=== PATIENT | male | born 1935 | race Caucasian/White ===

== ENCOUNTER 2020-09-07 19:12 | Emergency (ER) | payer MEDICARE, BC, SELFPAY ==
[2020-09-07 19:15] VITALS: BMI 39.5
--- NOTE | 2020-09-07 19:16 | ED_ITS ---
HPI - Abdominal Pain General: Chief Complaint: Nausea/Vomiting/Diarrhea Stated Complaint: vomiting Time Seen by Provider: 09/07/20 19:13 Source: patient and EMS Mode of arrival: EMS Limitations: no limitations History of Present Illness: HPI narrative: 84-year-old male who is here from assisted. Patient had one episode of vomiting earlier today there. Nursing was concerned it may have had blood in it they are not sure. Patient here has no complaints. He states he no longer feels nauseous just of the one episode of vomiting. He denies any pain. He denies any blood in stool. Patient's vitals per EMS were all normal. He denies any worsening improving factors. MD elicited complaint: abdominal pain Associated Symptoms: Reports nausea and vomiting; Denies chills, dysuria and fever(s) Review of Systems Const: Denies: fever(s), chills, body aches or change in appetite Eyes: Denies: blurry vision or eye discomfort ENMT: Denies: throat pain or dental pain Card: Denies: chest pain Resp: Denies: dyspnea GI: Reports: nausea and vomiting : Denies: dysuria Musc: Denies: neck pain or back pain Skin/Breast: Denies: rash Neuro: Denies: headache(s) Psych: Denies: depression Josh/Lymph: Denies: easy bruising All/Imm: Denies: urticaria Physical Exam 2 Const: COMMON NORMALS: no acute distress, patient oriented x3 and healthy appearing HENMT: COMMON NORMALS: normocephalic and atraumatic HEAD & SCALP: normocephalic and atraumatic Eye: COMMON NORMALS: Equal, round and reactive pupils present and EOMs intact bilaterally PUPIL: Yes Equal, round and reactive pupils present Neck/C-Spine: COMMON NORMALS: full ROM and supple Chest: COMMONS NORMALS: normal inspection of the chest and normal palpation of entire chest wall Resp: COMMON NORMALS: normal respiratory effort, No retractions, No use of accessory muscles and clear to auscultation bilaterally AUSCULTATION: clear to auscultation bilaterally Cardio: COMMON NORMALS: regular rate, regular rhythm and No murmurs present (Cardio) RATE: regular rate RHYTHM: regular rhythm GI: COMMON NORMALS: Normal to inspection, nondistended, normoactive bowel sounds present, Soft to palpation, non-tender and no masses PALPATION: Yes Soft to palpation Extremity: COMMON NORMALS: normal to inspection and full ROM Neuro: COMMON NORMALS: patient oriented x3, moves all extremities and no focal motor deficits Psych: COMMON NORMALS: mental status grossly normal, Normal thought process present and cooperative THOUGHT PROCESS: Normal thought process present Skin: COMMON NORMALS: no rashes or lesions noted and no wounds GENERAL SKIN EXAM: no rashes or lesions noted Course Vital Signs: Vital signs: Vital Signs Temperature 97.7 F 09/07/20 19:22 Pulse Rate 82 09/07/20 19:22 Respiratory Rate 26 H 09/07/20 19:22 Blood Pressure 201/85 09/07/20 19:22 Pulse Oximetry 92 09/07/20 19:22 MDM - Abdominal Pain MDM Narrative: Medical decision making narrative: Patient presents here with vomiting with possible blood in his vomit the assisted. Patient has no signs of upper GI bleed here and his hemoglobin here is normal and his blood pressures been normal. He had no vomiting episodes here has been here for over 3 hours. His abdominal exam is benign. He is stable for discharge back to assisted. Lab Data: Labs: Lab Results 09/07/20 09/07/20 Range/Units 19:35 19:35 WBC 8.3 (4.0-10.0) 10^3/ uL RBC 4.16 (4.1-5.3) 10^6/u L Hgb 10.7 L (11.7-16.6) g/dL Hct 33.8 L (42.0-52.0) % MCV 81.3 (80-94) fL MCH 25.7 L (28.0-34.0) pg MCHC 31.7 (30.0-36.0) g/dL RDW 17.3 H (12.1-15.1) % Plt Count 196 (130-400) 10^3/c mm MPV 11.2 H (7.4-10.4) fL Neut % (Auto) 76.9 % Lymph % (Auto) 12.7 % Pike % (Auto) 7.9 % Eos % (Auto) 1.6 % Baso % (Auto) 0.5 % Neut # (Auto) 6.37 (1.8-7.7) 10^3/u L Lymph # (Auto) 1.1 (0.8-4.8) 10^3/u L Pike # (Auto) 0.7 (0.2-0.9) 10^3/u L Eos # (Auto) 0.1 (0.0-0.8) 10^3/u L Baso # (Auto) 0.0 (0.0-0.1) 10^3/u L Nucleated RBC % (a uto) 0 % Nucleated RBCs # 0.0 /100WBC Sodium 139 (136-145) mmol/L Potassium 3.8 (3.5-5.1) mmol/L Chloride 103 (98-107) mmol/L Carbon Dioxide 25 (22-29) mmol/L Anion Gap 14.8 (5-19) BUN 32 H (8-23) mg/dL Creatinine 1.7 H (0.7-1.2) mg/dL GFR Calculation Not Reportable Glucose 97 (65-115) mg/dL Calculated Osmolal ity 295 (285-295) mOsm/k g Calcium 9.0 (8.5-10.5) mg/dL Total Bilirubin 1.0 (0.15-1.2) mg/dL AST 16 (0-40) U/L ALT 16 (0-41) U/L Alkaline Phosphata se 117 (40-130) IU/L Total Protein 6.8 (6.6-8.7) g/dL Albumin 3.8 (3.5-5.2) g/dL Globulin 3.0 (1.3-4.6) g/dL Lipase 18 (13-60) U/L Discharge Plan Discharge Patient Disposition: Home Clinical Impression: Vomiting Qualifiers: Vomiting type: unspecified Vomiting Intractability: non-intractable Nausea presence: with nausea Qualified Code(s): R11.2 - Nausea with vomiting, unspecified Condition: Stable Prescriptions: New ondansetron 4 mg tablet,disintegrating 4 mg PO Q6H PRN (Reason: nausea and vomiting) Qty: 14 RF: 0 No Action Cozaar 50 mg Tablet 50 mg PO DAILY@0800 RF: 0 Lasix 40 mg Tablet 40 mg PO BID@0800,1200 RF: 0 Coreg 25 mg Tablet 25 mg PO BID@0800,2000 RF: 0 potassium chloride 10 mEq Capsule, Extended Release 10 meq PO DAILY@0800 RF: 0 acetaminophen 325 mg Tablet 650 mg PO Q6H PRN (Reason: Pain) RF: 0 divalproex 250 mg Tablet,Delayed Release (Dr/Ec) 250 mg PO BID@799,1999 RF: 0 hydralazine 25 mg Tablet 25 mg PO TID@0800,1399,1999 RF: 0 Plavix 75 mg Tablet 75 mg PO DAILY@0800 RF: 0 Ativan 0.5 mg Tablet 0.5 mg PO BID@799,1999 RF: 0 Milk of Magnesia 400 mg/5 mL Suspension 1,200 mg PO Q24H PRN (Reason: Constipation) RF: 0 Lasix 80 mg Tablet See Rx Instructions .ROUTE .COMPLEX RF: 0 trazodone 100 mg Tablet 100 mg PO DAILY@1999 RF: 0 Dulcolax (bisacodyl) 10 mg Suppository 10 mg [place] DAILY PRN (Reason: Constipation) RF: 0 Colace 100 mg Capsule 100 mg PO BID@799,1999 RF: 0 Miralax 17 gram/dose Powder 17 g PO Q2D@0800 RF: 0 memantine 10 mg Tablet 10 mg PO BID@799,1999 RF: 0 Discharge Orders: Discharge ED (Routine); Ordered 09/07/20 Ordered By: Fritz Regalado Referrals: Everton Alcocer [Primary Care Provider] - Discharge Diet: Advance as tolerated Discharge Activity: Resume usual activity Patient Instructions: Acute Nausea and Vomiting (ED) Coding Level of Care Code ED Official Court Interpreter for [employer] Fwd Exam Comprehensive
[2020-09-07 19:22] VITALS: BP 201/85; PULSE 82; RESP 26; TEMP 36.5; O2SAT 92
[2020-09-07] MEDS: ondansetron 2 mg/ML SDV 2 mL 4 MG IVP (19:30)
[2020-09-07] MEDS: labetalol 5 mg/mL SDV 20mL 10 MG IVP (19:35)
[2020-09-07 19:44] LABS: Basophils % 0.5 %; Eosinophils # 0.1 10^3/uL (0.0-0.8); Eosinophils % 1.6 %; Hematocrit 33.8 % (42.0-52.0); Hemoglobin 10.7 g/dL (11.7-16.6); Lymphocytes # 1.1 10^3/uL (0.8-4.8); Lymphocytes % 12.7 %; Mean Corpuscular HGB Conc 31.7 g/dL (30.0-36.0); Mean Corpuscular Hemoglobin 25.7 pg (28.0-34.0); Mean Corpuscular Volume 81.3 fL (80-94); Mean Platelet Volume 11.2 fL (7.4-10.4); Monocytes # 0.7 10^3/uL (0.2-0.9); Monocytes % 7.9 %; Neutrophils # 6.37 10^3/uL (1.8-7.7); Neutrophils % 76.9 %; Nucleated Red Blood Cells % 0 %; Platelet Count 196 10^3/cmm (130-400); Red Blood Count 4.16 10^6/uL (4.1-5.3); Red Cell Distribution Width 17.3 % (12.1-15.1); White Blood Count 8.3 10^3/uL (4.0-10.0)
[2020-09-07 20:10] LABS: Alanine Aminotransferase 16 U/L (0-41); Albumin Level 3.8 g/dL (3.5-5.2); Alkaline Phosphatase 117 IU/L (40-130); Anion Gap 14.8 (5-19); Aspartate Amino Transferase 16 U/L (0-40); Blood Urea Nitrogen 32 mg/dL (8-23); Carbon Dioxide 25 mmol/L (22-29); Chloride 103 mmol/L (98-107); Glucose 97 mg/dL (65-115); Lipase 18 U/L (13-60); Osmolality Calculated 295 mOsm/kg (285-295); Potassium 3.8 mmol/L (3.5-5.1); Sodium 139 mmol/L (136-145); Total Protein 6.8 g/dL (6.6-8.7)
[2020-09-07 21:22] VITALS: BP 148/109; PULSE 75; O2SAT 95
[2020-09-07 23:00] VITALS: BP 164/110
== END 2020-09-07 23:05 | disposition home or self-care (01) ==
PROVIDERS: Emergency Provider Emergency Medicine; PCP Family Medicine
DX: R11.2 Nausea with vomiting, unspecified (principal); Z79.02 Long term (current) use of antithrombotics/antiplatelets
CPT/HCPCS: 80053; 83690; 85025; 96374; 96375; 99284; J2405; J3490

== ENCOUNTER 2020-09-12 18:19 | Inpatient (IN) | payer MEDICARE, BC, SELFPAY ==
[2020-09-12] VITALS (8 sets, daily range): BP systolic 138–166; BP diastolic 68–90; PULSE 55–71; RESP 18–25; TEMP 35.1–37.1; O2SAT 95–99; BMI 28.8
--- NOTE | 2020-09-12 18:22 | XRR_ITS ---
PROCEDURE INFORMATION: Exam: XR Chest Exam date and time: 09/12/2020 6:35 PM Age: 84 years old Clinical indication: Cough and shortness of breath; Prior surgery; Additional info: Dyspnea/cough TECHNIQUE: Imaging protocol: XR of the chest. Views: 1 view. COMPARISON: CR Chest 2 views* [id number] 03/24/2019 3:30 PM FINDINGS: Lungs: Increased density in the retrocardiac left lower lobe may represent an area of atelectasis or pneumonic consolidation. Correlation with the clinical findings is suggested. Visualized portions of the right lung are clear. Pleural spaces: There is moderate left pleural effusion. Heart/Mediastinum: Unremarkable. No cardiomegaly. Bones/joints: Sternotomy wires and mediastinal surgical clips are present, consistent with previous coronary arterial bypass grafting. XR/XR chest 1V portable [id number] IMPRESSION: 1. Left lower lobe atelectasis or consolidation. 2. Left pleural effusion.
--- NOTE | 2020-09-12 18:34 | W.ED.AMS ---
HPI - Altered Mental Status General: Chief Complaint: Altered Mental Status Stated Complaint: AMS, HYPOGLYCEMIA Time Seen by Provider: 09/12/20 18:21 Source: patient and EMS Mode of arrival: EMS Limitations: no limitations History of Present Illness: HPI narrative: 84-year-old male who has a history of dementia is here from care home after being altered today. Per EMS care home found his blood sugar to be in the 40s and was not able to rouse him. They did give him glucagon he is now awake and alert at his baseline. Patient here is able answer all my questions and knows his name. He is disoriented to place and time but that is his baseline. He states he feels well currently. Patient is on insulin there. He has had no fever. No head injuries. Associated symptoms: Deny depression Review of Systems Const: Denies: fever(s), chills, body aches or change in appetite Eyes: Denies: blurry vision or eye discomfort ENMT: Denies: throat pain or dental pain Card: Denies: chest pain Resp: Denies: dyspnea GI: Denies: abdominal pain, nausea, vomiting or diarrhea : Denies: dysuria Musc: Denies: neck pain or back pain Skin/Breast: Denies: rash Neuro: Reports: confusion; Denies: headache(s) Psych: Denies: depression Josh/Lymph: Denies: easy bruising All/Imm: Denies: urticaria PFSH ED PFSH: Medical History (Updated 09/12/20 @ 21:03 by Fritz Regalado MD) Cellulitis CHF (congestive heart failure) Diabetes Dyslipidemia Hypertension Surgical History (Updated 09/12/20 @ 21:01 by León Soliz MD) Hx of CABG Family History (Updated 09/12/20 @ 21:02 by León Soliz MD) Other Family history non-contributory Social History Smoking and tobacco status: former smoker Alcohol intake: never Substance/Drug Use: never Housing: [facility] Physical Exam Const: COMMON NORMALS: no acute distress, healthy appearing and alert ORIENTATION/CONSCIOUSNESS: Yes oriented to person; not oriented to place and not oriented to time HENMT: COMMON NORMALS: normocephalic and atraumatic HEAD & SCALP: normocephalic and atraumatic Eye: COMMON NORMALS: Equal, round and reactive pupils present and EOMs intact bilaterally PUPIL: Yes Equal, round and reactive pupils present Neck/C-Spine: COMMON NORMALS: full ROM and supple Chest: COMMONS NORMALS: normal inspection of the chest and normal palpation of entire chest wall Resp: COMMON NORMALS: normal respiratory effort, No retractions, No use of accessory muscles and clear to auscultation bilaterally AUSCULTATION: clear to auscultation bilaterally Cardio: COMMON NORMALS: regular rate, regular rhythm and No murmurs present (Cardio) RATE: regular rate RHYTHM: regular rhythm GI: COMMON NORMALS: Normal to inspection, nondistended, normoactive bowel sounds present, Soft to palpation, non-tender and no masses PALPATION: Yes Soft to palpation Extremity: COMMON NORMALS: normal to inspection and full ROM Neuro: COMMON NORMALS: moves all extremities and no focal motor deficits SENSORIUM/ORIENTATION: Yes alert, Yes oriented to person, No oriented to place and No oriented to time Psych: COMMON NORMALS: mental status grossly normal, Normal thought process present and cooperative THOUGHT PROCESS: Normal thought process present Skin: COMMON NORMALS: no rashes or lesions noted and no wounds GENERAL SKIN EXAM: no rashes or lesions noted Course Vital Signs: Vital signs: Vital Signs Temperature 96 F L 09/12/20 20:00 Pulse Rate 55 L 09/12/20 20:00 Respiratory Rate 24 H 09/12/20 20:00 Blood Pressure 149/68 09/12/20 20:00 Pulse Oximetry 95 09/12/20 20:00 MDM - Altered Mental Status MDM Narrative: Medical decision making narrative: Patient presents with confusion likely from hypoglycemia. Patient is now awake and alert with his sugar corrected. Does have some dyspnea and x-ray shows a possible pneumonia. He also has some hypo thermia. Patient given IV antibiotics here along with some Lasix as his BNP is elevated as well. Spoke to hospitalist will admit for observation. Lab Data: Labs: Lab Results 09/12/20 09/12/20 09/12/20 Range/Units 18:31 18:31 18:31 WBC 6.4 (4.0-10.0) 10^3/ uL RBC 3.65 L (4.1-5.3) 10^6/u L Hgb 9.3 L (11.7-16.6) g/dL Hct 29.6 L (42.0-52.0) % MCV 81.1 (80-94) fL MCH 25.5 L (28.0-34.0) pg MCHC 31.4 (30.0-36.0) g/dL RDW 17.1 H (12.1-15.1) % Plt Count 175 (130-400) 10^3/c mm MPV 11.0 H (7.4-10.4) fL Neut % (Auto) 73.1 % Lymph % (Auto) 14.8 % Jenkins % (Auto) 6.6 % Eos % (Auto) 4.2 % Baso % (Auto) 1.1 % Neut # (Auto) 4.65 (1.8-7.7) 10^3/u L Lymph # (Auto) 0.9 (0.8-4.8) 10^3/u L Jenkins # (Auto) 0.4 (0.2-0.9) 10^3/u L Eos # (Auto) 0.3 (0.0-0.8) 10^3/u L Baso # (Auto) 0.1 (0.0-0.1) 10^3/u L Nucleated RBC % (a uto) 0 % Nucleated RBCs # 0.0 /100WBC Sodium 139 (136-145) mmol/L Potassium 4.2 (3.5-5.1) mmol/L Chloride 106 (98-107) mmol/L Carbon Dioxide 27 (22-29) mmol/L Anion Gap 10.2 (5-19) BUN 31 H (8-23) mg/dL Creatinine 1.4 H (0.7-1.2) mg/dL GFR Calculation Not Reportable Glucose 68 (65-115) mg/dL POC Glucose (70-110) mg/dL Calculated Osmolal ity 293 (285-295) mOsm/k g Calcium 8.6 (8.5-10.5) mg/dL Magnesium 2.3 (1.7-2.3) mg/dL Total Bilirubin 0.7 (0.15-1.2) mg/dL AST 17 (0-40) U/L ALT 13 (0-41) U/L Alkaline Phosphata se 88 (40-130) IU/L NT-Pro-B Natriuret Pep 5167 H (0-450) pg/mL Total Protein 6.0 L (6.6-8.7) g/dL Albumin 3.3 L (3.5-5.2) g/dL Globulin 2.7 (1.3-4.6) g/dL 09/12/20 Range/Units 19:21 WBC (4.0-10.0) 10^3/ uL RBC (4.1-5.3) 10^6/u L Hgb (11.7-16.6) g/dL Hct (42.0-52.0) % MCV (80-94) fL MCH (28.0-34.0) pg MCHC (30.0-36.0) g/dL RDW (12.1-15.1) % Plt Count (130-400) 10^3/c mm MPV (7.4-10.4) fL Neut % (Auto) % Lymph % (Auto) % Jenkins % (Auto) % Eos % (Auto) % Baso % (Auto) % Neut # (Auto) (1.8-7.7) 10^3/u L Lymph # (Auto) (0.8-4.8) 10^3/u L Jenkins # (Auto) (0.2-0.9) 10^3/u L Eos # (Auto) (0.0-0.8) 10^3/u L Baso # (Auto) (0.0-0.1) 10^3/u L Nucleated RBC % (a uto) % Nucleated RBCs # /100WBC Sodium (136-145) mmol/L Potassium (3.5-5.1) mmol/L Chloride (98-107) mmol/L Carbon Dioxide (22-29) mmol/L Anion Gap (5-19) BUN (8-23) mg/dL Creatinine (0.7-1.2) mg/dL GFR Calculation Glucose (65-115) mg/dL POC Glucose 95 (70-110) mg/dL Calculated Osmolal ity (285-295) mOsm/k g Calcium (8.5-10.5) mg/dL Magnesium (1.7-2.3) mg/dL Total Bilirubin (0.15-1.2) mg/dL AST (0-40) U/L ALT (0-41) U/L Alkaline Phosphata se (40-130) IU/L NT-Pro-B Natriuret Pep (0-450) pg/mL Total Protein (6.6-8.7) g/dL Albumin (3.5-5.2) g/dL Globulin (1.3-4.6) g/dL Imaging Data^: CT Head: Radiologist's impression: [employer] [address] [place] [address] Scan Report Signed Patient: Roge Hopkins Unit #: [id number] : 1935 Age/Sex: 84 / M ADM Date: 09/12/20 Loc: ER Room/Bed: Attending Dr: Ordering Provider/Ordering MD: Fritz Regalado MD Date of Service: 09/12/20 Procedure(s): CT head wo con* [id number] Accession Number(s): [id number] Report Number: [id number] PROCEDURE INFORMATION: Exam: CT Head Without Contrast Exam date and time: 09/12/2020 7:01 PM Age: 84 years old Clinical indication: Altered mental status/memory loss; Additional info: AMS TECHNIQUE: Imaging protocol: Computed tomography of the head without contrast. Radiation optimization: All CT scans at this facility use at least one of these dose optimization techniques: automated exposure control; mA and/or kV adjustment per patient size (includes targeted exams where dose is matched to clinical indication); or iterative reconstruction. COMPARISON: No relevant prior studies available. RADIATION DOSE METRICS: Total DLP (mGy-cm): 1525.55 FINDINGS: Brain: There is advanced cortical atrophy. Low-density changes in the white matter are consistent with nonspecific small vessel chronic ischemic change. There is no intracranial mass, hemorrhage or edema. There are areas focal encephalomalacia in the left frontal lobe and left posterior parietal lobe and left occipital lobe in keeping with chronic cortical infarcts. Cerebral ventricles: No ventriculomegaly. Bones/joints: Unremarkable. No acute fracture. Paranasal sinuses: Visualized sinuses are unremarkable. No fluid levels. Mastoid air cells: Visualized mastoid air cells are well aerated. Soft tissues: Unremarkable. 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 No acute intracranial finding. CXR: Radiologist's impression: [facility] [address] [facility] [place] [address] XRay Report Signed Patient: Roge Hopkins Unit #: [id number] : 1935 Age/Sex: 84 / M ADM Date: 09/12/20 Loc: ER Room/Bed: Attending Dr: Ordering Provider/Ordering MD: Kendell Rivera DO Date of Service: 09/12/20 Procedure(s): XR chest 1V portable [id number] Accession Number(s): [id number] Report Number: [id number] PROCEDURE INFORMATION: Exam: XR Chest Exam date and time: 09/12/2020 6:35 PM Age: 84 years old Clinical indication: Cough and shortness of breath; Prior surgery; Additional info: Dyspnea/cough TECHNIQUE: Imaging protocol: XR of the chest. Views: 1 view. COMPARISON: CR Chest 2 views* [id number] 03/24/2019 3:30 PM FINDINGS: Lungs: Increased density in the retrocardiac left lower lobe may represent an area of atelectasis or pneumonic consolidation. Correlation with the clinical findings is suggested. Visualized portions of the right lung are clear. Pleural spaces: There is moderate left pleural effusion. Heart/Mediastinum: Unremarkable. No cardiomegaly. Bones/joints: Sternotomy wires and mediastinal surgical clips are present, consistent with previous coronary arterial bypass grafting. XR/XR chest 1V portable [id number] IMPRESSION: 1. Left lower lobe atelectasis or consolidation. 2. Left pleural effusion. Discharge Plan Discharge Patient Disposition: Admitted As Inpatient Clinical Impression: Hypoglycemia Pneumonia Qualifiers: Pneumonia type: due to unspecified organism Laterality: unspecified laterality Lung location: unspecified part of lung Qualified Code(s): J18.9 - Pneumonia, unspecified organism CHF (congestive heart failure) Qualifiers: Heart failure type: unspecified Heart failure chronicity: acute on chronic Qualified Code(s): I50.9 - Heart failure, unspecified Condition: Stable Coding Level of Care Code ED Phlebotomy Instructor for [facility] Fwd Exam Comprehensive
[2020-09-12 18:38] LABS: Basophils # 0.1 10^3/uL (0.0-0.1); Basophils % 1.1 %; Eosinophils # 0.3 10^3/uL (0.0-0.8); Eosinophils % 4.2 %; Hematocrit 29.6 % (42.0-52.0); Hemoglobin 9.3 g/dL (11.7-16.6); Lymphocytes # 0.9 10^3/uL (0.8-4.8); Lymphocytes % 14.8 %; Mean Corpuscular HGB Conc 31.4 g/dL (30.0-36.0); Mean Corpuscular Hemoglobin 25.5 pg (28.0-34.0); Mean Corpuscular Volume 81.1 fL (80-94); Monocytes # 0.4 10^3/uL (0.2-0.9); Monocytes % 6.6 %; Neutrophils # 4.65 10^3/uL (1.8-7.7); Neutrophils % 73.1 %; Nucleated Red Blood Cells % 0 %; Platelet Count 175 10^3/cmm (130-400); Red Blood Count 3.65 10^6/uL (4.1-5.3); Red Cell Distribution Width 17.1 % (12.1-15.1); White Blood Count 6.4 10^3/uL (4.0-10.0)
--- NOTE | 2020-09-12 18:54 | PC.NURSE ---
pt thinks it is may and that he is in [place] at the hospital. he also was unsure of the year and why he is here
[2020-09-12 19:04] LABS: Alanine Aminotransferase 13 U/L (0-41); Albumin Level 3.3 g/dL (3.5-5.2); Alkaline Phosphatase 88 IU/L (40-130); Blood Urea Nitrogen 31 mg/dL (8-23); Calcium 8.6 mg/dL (8.5-10.5); Carbon Dioxide 27 mmol/L (22-29); Chloride 106 mmol/L (98-107); Globulin 2.7 g/dL (1.3-4.6); Glucose 68 mg/dL (65-115); Magnesium 2.3 mg/dL (1.7-2.3); Osmolality Calculated 293 mOsm/kg (285-295); Sodium 139 mmol/L (136-145); Total Bilirubin 0.7 mg/dL (0.15-1.2)
[2020-09-12 19:05] LABS: Anion Gap 10.2 (5-19); Aspartate Amino Transferase 17 U/L (0-40); Potassium 4.2 mmol/L (3.5-5.1)
[2020-09-12 19:16] LABS: NT Pro B Type Natriuretic Pept 5167 pg/mL (0-450)
[2020-09-12 19:37] LABS: Glucose Point of Care 95 mg/dL (70-110)
[2020-09-12] MEDS: FUROsemide 10 mg/mL SDV 4mL 40 MG IVP (20:09)
[2020-09-12] MEDS: cefTRIAXone 1,000 MG in sodium chloride 0.9% (plus) 50 ML 100 MG IV (20:09)
[2020-09-12] MEDS: azithromycin 500 MG in sodium chloride 0.9% 250 ML 250 MG IV (20:10)
--- NOTE | 2020-09-12 21:00 | P.HP_ITS ---
Providers/Chief Complaint Primary Care Provider: Everton Alcocer Chief Complaint: AMS, HYPOGLYCEMIA History of Present Illness Roge Hopkins is a 84 year old male resident of a skilled nursing, presented today after an event of hypoglycemia induced altered mental status. At the skilled nursing he was found to be very drowsy and confused blood sugar was checked which was in 40s, he was given glucagon. His mentation improved, he was sent to the ER for further evaluation. Patient is stating that for last few weeks he has been experiencing orthopnea, PND, shortness of breath, he has not noticed any fever, productive cough, he is denying chest pain, shortness of breath, dysuria, change in bowel movements. Diagnosis in the ER revealed CHF exacerbation he was given ceftriaxone and azithromycin for concern of left-sided pneumonia however prolactin is normal, no leukocytosis, hemoglobin 9.3, creatinine at baseline EKG showing T wave inversion anterolateral leads with sinus bradycardia will require serial troponin and EKG, however patient is not complaining of active chest pain On comparison with previous EKGs, these T wave inversions are not new, T wave inversion noticed on previous EKG in lead II aVF anterolateral leads Will request D-dimer along serial troponin and EKG Review of Systems Const: Reports: body aches and fatigue; Denies: fever(s) or chills Eyes: Denies: change in vision ENMT: Denies: throat pain Card: Reports: edema, dyspnea on exertion and orthopnea; Denies: chest pain Resp: Reports: dyspnea GI: Denies: abdominal pain : Denies: flank pain Musc: Denies: neck pain Skin/Breast: Reports: new lesions, lesions and striae Neuro: Denies: headache(s) Psych: Reports: memory loss; Denies: anxiety Endo: Denies: polyuria Josh/Lymph: Denies: easy bruising All/Imm: Denies: urticaria Medications/Allergies Home Medications Medication Instructions Recorded Confirmed Last Taken Type acetaminophen 650 mg PO Q6H PRN 09/07/20 09/12/20 Unknown History bisacodyl [Dulcolax (bisacodyl)] 10 mg [place] DAILY PRN 09/07/20 09/12/20 Unknown History carvedilol [Coreg] 25 mg PO BID@0800,199909/07/20 09/12/20 09/12/20 History clopidogrel [Plavix] 75 mg PO DAILY@0800 09/07/20 09/12/20 09/12/20 History divalproex 250 mg PO BID@0800,199909/07/20 09/12/20 09/12/20 History docusate sodium [Colace] 100 mg PO BID@0800,199909/07/20 09/12/20 09/12/20 History furosemide [Lasix] 40 mg PO BID@0800,1200 09/07/20 09/12/20 09/12/20 History furosemide [Lasix] See Rx Instructions .ROUTE .COMPLEX 09/07/20 09/12/20 09/04/20 History hydralazine 25 mg PO TID@0800,1399,199909/07/20 09/12/20 09/12/20 History lorazepam [Ativan] 0.5 mg PO BID@0800,199909/07/20 09/12/20 09/12/20 History losartan [Cozaar] 50 mg PO DAILY@0800 09/07/20 09/12/20 09/12/20 History magnesium hydroxide [Milk of 1,200 mg PO Q24H PRN 09/07/20 09/12/20 09/12/20 History Magnesia] memantine 10 mg PO BID@08,199909/07/20 09/12/20 09/12/20 History ondansetron 4 mg PO Q6H PRN #14 tab 09/07/20 09/12/20 09/08/20 Rx polyethylene glycol 3350 [Miralax] 17 g PO Q2D@79909/07/20 09/12/20 09/12/20 History potassium chloride 10 meq PO DAILY@79909/07/20 09/12/20 09/12/20 History trazodone 100 mg PO DAILY@199909/07/20 09/12/20 09/11/20 History insulin glargine [Lantus U-100 36 unit SUBCUT BEDTIME@199909/12/20 09/12/20 09/11/20 History Insulin] omeprazole 20 mg PO DAILY@0800 09/12/20 09/12/20 09/12/20 History Allergies Allergy/AdvReac Type Severity Reaction Status Date / Time NKDA Allergy Unknown Uncoded 07/10/19 11:32 PFSH Acute PFSH: Medical History (Updated 09/13/20 @ 00:50 by León Soliz MD) Cellulitis CHF (congestive heart failure) Dementia Diabetes Dyslipidemia Hypertension Surgical History Hx of CABG Family History Other Family history non-contributory Social History Smoking and tobacco status: former smoker Alcohol intake: never Substance/Drug Use: never Housing: [facility] Vitals/I&O/Wt Last Vital Signs Temp 96 F L 09/12/20 20:00 Pulse 55 L 09/12/20 20:00 Resp 24 H 09/12/20 20:00 BP 149/68 09/12/20 20:00 Pulse Ox 95 09/12/20 20:00 Weight last 48 hrs Weight 86.183 kg Physical Exam Narrative: EXAM NARRATIVE: Elderly male, appears stated age, Currently laying comfortably in his bed No active chest pain or shortness of breath Loud systolic murmur all over precordium, active signs of fluid overload lower extremity 1+ pitting edema with multiple lacerations Is awake alert oriented x3 no neurological deficits Bilateral breath sounds with crackles at the bases Abdomen soft nontender Multiple lacerations of lower extremities He was saturating well on 2 L nasal cannula Hypothermia noted 95.5 Data : 09/12/20 18:31 09/12/20 18:31 A&P Assessment and plan (1) CHF exacerbation: Status: Acute (2) Hypoglycemia: Status: Acute (3) Abnormal EKG: Status: Acute Additional A&P Information Acute CHF exacerbation Currently requiring 2 L nasal cannula oxygen supplementation to keep saturation above 90% No active chest pain We requested a troponin and EKG, EKG showing inversion anterolateral leads however on comparison to previous EKG these changes are not new patient is chest pain-free at the time of my evaluation would not start ACS protocol for now We will keep him on Bumex 1 mg p.o. daily monitor urine output and correlate with creatinine, chest imaging consistent with vascular congestion, will request D-dimer to rule out PE Home O2 evaluation Echo in the morning Altered mental status secondary to hypoglycemia Check hemoglobin A1c level I would reduce Lantus dose to 15U instead of 36 units He received 1 dose of glucagon Chronic kidney disease: No acute exacerbation creatinine seems to be around baseline Baseline dementia: Continue memantine Full code Cardiac diet DVT prophylaxis Heparin Attestations Medical Necessity Statement*: Anticipating discharge in less than 48 hours currently need overnight monitoring because of acute hypoxic respiratory failure due to CHF exacerbation Time Spent in Patient Care: (>than 50% of time spent in counselling and/or direct pt care on unit) . 30mins Coding Level of Care Code Acute Supervisor Microbiology Technologists for [facility] Fwd Diagnoses CHF exacerbation I50.9 Hypoglycemia E16.2 Abnormal EKG R94.31
--- NOTE | 2020-09-12 21:13 | ECG_ITS ---
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 Measurements Intervals [place] Rate: 56 P: -21 CT: 175 QRS: 118 QRSD: 145 T: 230 QT: 541 QTc: 526 Interpretive Statements SINUS BRADYCARDIA MARKED RIGHT AXIS DEVIATION [QRS AXIS > 100] INTRAVENTRICULAR CONDUCTION DELAY [130+ ms QRS DURATION] PROBABLE LATERAL MYOCARDIAL INFARCTION, OF INDETERMINATE AGE Compared to ECG 03/24/2019 15:06:10 Right-axis deviation now present Intraventricular conduction delay now present Myocardial infarct finding now present Sinus rhythm no longer present Right bundle-branch block no longer present T-wave abnormality no longer present Possible ischemia no longer present Electronically Signed On 09-13-2020 17:30:37 CDT by Eri Guerrero M.D. [id number]
[2020-09-12 21:26] LABS: Procalcitonin 0.07 ng/mL (0-0.5)
[2020-09-12 21:44] LABS: Add Urine Microscopic? NO; Charge for UA Resulting for Rev
[2020-09-12 21:51] LABS: Bilirubin Urine Neg (Negative); Blood Urine Neg (Negative); Glucose Urine UA Norm (Normal); Ketones Urine Negative (Negative); Leukocyte Esterase Urine Negative (Negative); Nitrate Urine Negative (Negative); Protein Urine Neg (Negative); Urine Appearance Clear (CLEAR); Urine Color Yellow (Yellow); Urobilinogen Urine Norm (Negative); pH Urine 7 (5-7)
[2020-09-12] MEDS: heparin 5,000 unit/mL INJ 1 mL 5000 UNIT SUBCUT (23:39)
[2020-09-13 00:03] LABS: Glucose Point of Care 59 mg/dL (70-110)
--- NOTE | 2020-09-13 00:41 | USCV_ITS ---
Ceceliamary Roge Age: 84 Gender: M : 1935 Exam Date: 09/13/2020 06:05 Ordering Phys: León Soliz MD Technologist: Cecile Santos Exam Location: [facility] [place] Indication: DYSPNEA BP: 156 / 93 HR: 64 Rhythm: Sinus Technical Quality: Technically difficult study MEASUREMENTS (Male / Female) Normal Values 2D ECHO LV Diastolic Diameter PLAX 3.9 cm 4.2 - 5.9 / 3.9 - 5.3 cm LV Systolic Diameter PLAX 2.8 cm IVS Diastolic Thickness 1.6 cm 0.6 - 1.0 / 0.6 - 0.9 cm IVS Systolic Thickness 2.1 cm LVPW Diastolic Thickness 1.6 cm 0.6 - 1.0 / 0.6 - 0.9 cm LVPW Systolic Thickness 1.7 cm RV Chamber Size 4.0 cm LVOT Diameter 1.7 cm LV Ejection Fraction 2D Teich 56.8 % LV Ejection Fraction MOD 2C 23.7 % LV Ejection Fraction 2C AL 29.5 % LA Diameter 3.1 cm LA Width 4.9 cm LA Height 5.6 cm RA Width 3.7 cm RA Height 5.6 cm Aorta at Sinotubular Diameter 2.0 cm M-MODE LV Diastolic Diameter MM 5.8 cm 4.2 - 5.9 / 3.9 - 5.3 cm LV Systolic Diameter MM 4.5 cm LV Ejection Fraction MM Teich 43.1 % IVS Diastolic Thickness MM 1.6 cm 0.6 - 1.0 / 0.6 - 0.9 cm IVS Systolic Thickness MM 1.6 cm LVPW Diastolic Thickness MM 1.3 cm 0.6 - 1.0 / 0.6 - 0.9 cm LVPW Systolic Thickness MM 1.3 cm Aortic Annulus Diameter 2.4 cm LA Ao Ratio MM 1.3 MV E Point Septal Separation 1.3 cm DOPPLER AV Peak Velocity 237.0 cm/s LVOT Peak Velocity 91.7 cm/s AV Area Cont Eq vti 0.9 cm squared AV Area Cont Eq pk 0.9 cm squared MV Area PHT 5.0 cm squared Mitral E to A Ratio 2.1 MV E' Velocity 48.0 cm/s Mitral E to MV E' Ratio 16.7 Mitral E to LV E' Lateral Ratio 12.8 Mitral E to LV E' Septal Ratio 23.9 TR Peak Velocity 265.3 cm/s TR Peak Gradient 28.1 mmHg Right Atrial Pressure 8.0 mmHg Pulmonary Artery Systolic Pressu 36.1 mmHg PV Peak Velocity 89.0 cm/s RV Acceleration Time 0.1 s RV Ejection Time 0.3 s RV AcT/ET 0.4 FINDINGS Left Ventricle Normal left ventricular size. LV systolic function is moderately reduced with EF of 35-40%. Moderate global hypokinesis. Grade 2 diastolic dysfunction Right Ventricle The right ventricle is grossly normal Right Atrium The right atrium is normal in size. Left Atrium The left atrium is enlarged Mitral Valve Structurally normal mitral valve without significant stenosis or prolapse. There is no mitral regurgitation. Aortic Valve Aortic valve is thickened. Moderate aortic stenosis with MARIA ESTHER of 1.0cm2 and mean gradient across the valve of 12.6mmHg. There is no aortic regurgitation. Tricuspid Valve Structurally normal tricuspid valve without significant stenosis or regurgitation. Insufficient TR jet to calculate RVSP Pulmonic Valve Structurally normal pulmonic valve without significant stenosis. There is trace pulmonic regurgitation. Pericardium Normal pericardium without effusion. Aorta Normal ascending aorta dimension. CONCLUSIONS LV systolic function is moderately reduced with EF of 35-40% Grade 2 diastolic dysfunction Left atrial enlargement Moderate aortic stenosis with MARIA ESTHER of 1cm2 and mean gradient across the valve of 12.6mmHg Trace pulmonic regurgitation No comparison studies are available Martinez Jacinto MD (Electronically Signed) Final Date: 14 September 2020 19:41 S
[2020-09-13 01:03] LABS: Glucose Point of Care 120 mg/dL (70-110)
[2020-09-13 02:54] LABS: Glucose Point of Care 129 mg/dL (70-110)
[2020-09-13 03:19] LABS: Estmated Average Glucose 197; Hemoglobin A1C 8.5 % (4.0-6.0)
[2020-09-13 04:48] VITALS: BP 156/83; PULSE 64; RESP 18; TEMP 36.7; O2SAT 100
[2020-09-13 05:22] LABS: Anion Gap 13.2 (5-19); Blood Urea Nitrogen 31 mg/dL (8-23); Calcium 8.5 mg/dL (8.5-10.5); Carbon Dioxide 27 mmol/L (22-29); Chloride 102 mmol/L (98-107); Glucose 113 mg/dL (65-115); Osmolality Calculated 293 mOsm/kg (285-295); Potassium 4.2 mmol/L (3.5-5.1); Sodium 138 mmol/L (136-145)
[2020-09-13 05:33] LABS: Glucose Point of Care 117 mg/dL (70-110)
[2020-09-13 05:59] LABS: Glucose Point of Care 104 mg/dL (70-110)
[2020-09-13] MEDS: heparin 5,000 unit/mL INJ 1 mL 5000 UNIT SUBCUT ×3 (06:17→21:08)
[2020-09-13 06:35] LABS: Glucose Point of Care 99 mg/dL (70-110)
[2020-09-13 07:43] VITALS: BP 160/76; PULSE 71; PULSE 76; RESP 20; TEMP 36.8; O2SAT 98
[2020-09-13 08:58] LABS: Glucose Point of Care 79 mg/dL (70-110)
[2020-09-13 09:16] VITALS: BP 160/76
[2020-09-13] MEDS: clopidogrel 75 mg Tablet PO (09:16)
[2020-09-13] MEDS: bumetanide 1 mg Tablet PO (09:16)
[2020-09-13] MEDS: carvedilol 25 mg Tablet PO ×2 (09:16→21:07)
[2020-09-13] MEDS: losartan 50 mg Tablet PO (09:16)
[2020-09-13] MEDS: memantine 5 mg tablet 10 MG PO ×2 (09:16→21:07)
[2020-09-13] MEDS: divalproex DR 250 mg Tablet PO ×2 (09:16→21:07)
[2020-09-13] MEDS: potassium chloride ER 10 mEq Tablet PO (09:17)
[2020-09-13] MEDS: hyDRALAzine 25 mg Tablet PO ×3 (09:17→21:07)
[2020-09-13] MEDS: pantoprazole DR 40 mg Tablet PO (09:17)
--- NOTE | 2020-09-13 09:18 | ECG_ITS ---
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 Measurements Intervals [place] Rate: 67 P: -15 [place]: 164 QRS: 90 QRSD: 152 T: 220 QT: 443 QTc: 470 Interpretive Statements SINUS RHYTHM RIGHT BUNDLE BRANCH BLOCK [120+ ms QRS DURATION, UPRIGHT V1, 40+ ms S IN I/aVL/V4/V5/V6] ST DEVIATION AND MODERATE T-WAVE ABNORMALITY, CONSIDER ANTEROLATERAL ISCHEMIA [-0.1+ mV T WAVE IN V3-V6] ST DEVIATION AND MODERATE T-WAVE ABNORMALITY, CONSIDER INFERIOR ISCHEMIA [-0.1+ mV T WAVE IN II/aVF] Compared to ECG 09/13/2020 11:26:05 First degree AV block no longer present T-wave abnormality still present Possible ischemia still present Electronically Signed On 09-13-2020 17:28:12 CDT by Eri Guerrero M.D. [id number]
[2020-09-13 10:12] LABS: Glucose Point of Care 84 mg/dL (70-110)
[2020-09-13 10:49] LABS: Glucose Point of Care 112 mg/dL (70-110)
[2020-09-13 10:57] LABS: Troponin(5th) Baseline 74 ng/L (0-15)
--- NOTE | 2020-09-13 11:18 | ECG_ITS ---
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 Measurements Intervals [place] Rate: 66 P: -15 NM: 211 QRS: 99 QRSD: 158 T: 210 QT: 476 QTc: 500 Interpretive Statements SINUS RHYTHM WITH FIRST DEGREE AV BLOCK RIGHT BUNDLE BRANCH BLOCK ST DEVIATION AND MARKED T-WAVE ABNORMALITY, CONSIDER ANTEROLATERAL ISCHEMIA ST DEVIATION AND MODERATE T-WAVE ABNORMALITY, CONSIDER INFERIOR ISCHEMIA Compared to ECG 09/13/2020 09:34:36 First degree AV block now present Ventricular premature complex(es) no longer present Aberrant conduction of supraventricular beat(s) no longer present Right-axis deviation no longer present T-wave abnormality still present Possible ischemia still present Electronically Signed On 09-13-2020 17:45:10 CDT by Eri Guerrero M.D. [id number]
[2020-09-13 11:38] VITALS: BP 120/63; PULSE 67; RESP 20; TEMP 36.9; O2SAT 100
--- NOTE | 2020-09-13 15:18 | ECG_ITS ---
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 Measurements Intervals [place] Rate: 66 P: [place]: QRS: 119 QRSD: 141 T: 222 QT: 455 QTc: 477 Interpretive Statements Sinus rhythm with VENTRICULAR PREMATURE COMPLEXES MARKED RIGHT AXIS DEVIATION RIGHT BUNDLE BRANCH BLOCK ST DEVIATION AND MODERATE T-WAVE ABNORMALITY, CONSIDER ANTEROLATERAL ISCHEMIA ST DEVIATION AND MODERATE T-WAVE ABNORMALITY, CONSIDER INFERIOR ISCHEMIA Compared to ECG 09/12/2020 21:25:08 Ventricular premature complex(es) now present Right bundle-branch block now present T-wave abnormality now present Possible ischemia now present Intraventricular conduction delay no longer present Myocardial infarct finding no longer present Electronically Signed On 09-13-2020 17:46:34 CDT by Eri Guerrero M.D. [id number]
[2020-09-13 16:00] VITALS: BP 163/76; PULSE 67; RESP 18; TEMP 37.1; O2SAT 100
[2020-09-13] MEDS: aspirin 325 mg Tablet PO (16:16)
[2020-09-13 17:18] LABS: Troponin 5 6HR 71.73 ng/L (0-15)
[2020-09-13 17:23] LABS: Troponin 5 6HR Delta -2.27 ng/L (0-12)
[2020-09-13 17:31] LABS: Glucose Point of Care 120 mg/dL (70-110)
[2020-09-13 19:35] VITALS: BP 145/75; PULSE 62; RESP 18; TEMP 36.6; O2SAT 98
[2020-09-13 19:56] LABS: Glucose Point of Care 112 mg/dL (70-110)
--- NOTE | 2020-09-13 19:59 | P.PN_ITS ---
Subjective Subjective: Interval history: He is awake, alert, not in discomfort. Conversant, but cannot provide any history whatsoever. Appears to be at baseline state of dementia. When asked where he is states exclaims [place]! and then laughs. Appears to be joking. When asked again, states he is and why no not. Does not remember the year. Is not sure why he is here. Vitals/I&O/Wt Last Vital Signs Temp 97.8 F 09/13/20 19:35 Pulse 62 09/13/20 19:35 Resp 18 09/13/20 19:35 BP 145/75 09/13/20 19:35 Pulse Ox 98 09/13/20 19:35 09/13/20 09/13/20 09/13/20 06:59 14:59 22:59 Intake Total 360 / 360 Balance 360 / 360 Weight last 48 hrs Weight 86.183 kg Physical Exam Const: COMMON NORMALS: no acute distress and alert; negative for patient oriented x3 GENERAL APPEARANCE: cooperative and comfortable ORIENTATION/CONSCIOUSNESS: Yes awake HENMT: COMMON NORMALS: oropharynx normal Neck/C-Spine: COMMON NORMALS: no JVD Resp: COMMON NORMALS: normal respiratory effort and clear to auscultation bilaterally AUSCULTATION: clear to auscultation bilaterally Cardio: COMMON NORMALS: no JVD, regular rhythm, S1 normal heart sound present, S2 normal heart sound present and No murmurs present (Cardio) RHYTHM: regular rhythm HEART SOUNDS: S1 normal heart sound present and S2 normal heart sound present GI: COMMON NORMALS: Normal to inspection, nondistended, normoactive bowel sounds present, Soft to palpation and non-tender PALPATION: Yes Soft to palpation Extremity: COMMON NORMALS: no joint enlargement and no pedal edema Neuro: COMMON NORMALS: moves all extremities; negative for patient oriented x3 SENSORIUM/ORIENTATION: Yes alert Skin: COMMON NORMALS: no rashes or lesions noted GENERAL SKIN EXAM: no rashes or lesions noted Data : 09/12/20 18:31 09/13/20 04:30 A&P Assessment and plan (1) CHF exacerbation: CHF with exacerbation. Per discussion with his daughter CHF is unknown. She believes his ejection fraction previously was about 45%. She states he had received multiple stents in the past. Also has peripheral artery disease with peripheral stents in his leg. Discussed with her abnormal troponin with rise, positive delta. 6-hour troponin appears to have subsided somewhat. He also appears to have irregular heartbeat, atrial fibrillation noted EKG. His daughter states this also has been present in the past and he used to be on Eliquis previously. Not clear why Eliquis was discontinued, although it does appear that he has had some brown content emesis which was concerning for possible GI bleed. She is not aware that this had ever been confirmed. It appears also at [facility] about a year ago there was some concerning finding in his neck possibly with a spot that may have had some bleed ing, although she is not sure exactly, but states that that was something that needed to be followed up. She is not sure whether this was followed up. Discussed with her results of echocardiogram. Although final results are pending, preliminary results appear to show ejection fraction 35-40% which appears perhaps worse than previous. He also appears to have moderate aortic stenosis. Discussed with her with elevated troponin, known CAD, worsening ejection fraction, coarsening may be for ischemic heart disease contributing. He does not have chest pain, EKG without finding of STEMI. Overall does not appear to have likely current ischemia, however, could not exclude recent [place], especially in setting of diabetes. Daughter states understanding, understanding risk of additional [place], progression of heart failure. At the same time she states his goals of care and wishes are limited. CODE STATUS is DNR. In terms of additional work-up and treatment, she does not believe he would want to u ndergo additional stress testing, additional coronary geography. She states likely he would be agreeable to continue medical therapy. At this time we will continue with treatment of congestive heart failure. Continue Bumex. Monitor in the hospital for treatment of possible recent [place]. Continue Plavix. Add aspirin. For now hold off anticoagulation, is on prophylactic heparin, but also due to concern for possible recent GI bleeding, possible other bleeding site in his neck? We will request records from [facility] to see if can identify what that unidentified abnormal finding mentioned by his daughter was. Continue beta-madelin. Add statin. Monitor on telemetry. Status: Acute (2) Hypoglycemia: Hypoglycemia, with still somewhat fluctuating blood glucose this morning, down to 68, despite holding insulin. Discontinue Lantus for now. Continue to monitor blood glucose. Status: Acute (3) Abnormal EKG: Noted atrial fibrillation with slow ventricular response. Perhaps contributing to troponin elevation. Per discussion with his daughter concern is for possible recent bleeding. He is not currently on anticoagulation, although she states was on Eliquis prior to admission to care home. For now continue medication as above for possible progression of coronary disease, possible recent [place]. Investigate we will further regarding what the bleeding may have been. Even still, as per discussion with her due to advanced dementia he is at high risk of falls, bleeding, so anticoagulation at this time may not be a safe choice, but may be considered further on additional follow-up depending on his condition. Status: Acute Additional A&P Information Altered mental status secondary to hypoglycemia Chronic kidney disease: No acute exacerbation creatinine seems to be around baseline Baseline dementia: Continue memantine AMD as per his daughter and provided paperwork Cardiac diet DVT prophylaxis Heparin Attestations Medical Necessity Statement*: Admission of over 2 midnights is needed for assessment management of hypoglycemia episodes, congestive heart failure with worsening ejection fraction, with possible progression of coronary disease, troponin elevation with possible recent [place]. 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
[2020-09-13] MEDS: atorvastatin 40 mg Tablet PO (21:06)
[2020-09-13] MEDS: trazodone 100 mg Tablet PO (21:07)
[2020-09-13 21:11] LABS: Glucose Point of Care 132 mg/dL (70-110)
--- NOTE | 2020-09-13 21:15 | PC.NURSE ---
Patients daughter Tg called. Updated her on patients status.
[2020-09-13 22:54] LABS: Glucose Point of Care 127 mg/dL (70-110)
[2020-09-14 00:34] VITALS: BP 171/82; PULSE 64; RESP 17; TEMP 36.8; O2SAT 98
[2020-09-14 02:01] LABS: Glucose Point of Care 121 mg/dL (70-110)
[2020-09-14 04:31] VITALS: BP 178/89; PULSE 63; RESP 18; TEMP 36.7; O2SAT 99
[2020-09-14 05:56] LABS: Basophils # 0.1 10^3/uL (0.0-0.1); Basophils % 1.6 %; Eosinophils # 0.3 10^3/uL (0.0-0.8); Eosinophils % 5.3 %; Hematocrit 32.7 % (42.0-52.0); Hemoglobin 9.9 g/dL (11.7-16.6); Lymphocytes # 1.5 10^3/uL (0.8-4.8); Lymphocytes % 29.5 %; Mean Corpuscular HGB Conc 30.3 g/dL (30.0-36.0); Mean Corpuscular Hemoglobin 25.1 pg (28.0-34.0); Mean Corpuscular Volume 82.8 fL (80-94); Mean Platelet Volume 11.7 fL (7.4-10.4); Monocytes # 0.5 10^3/uL (0.2-0.9); Monocytes % 9.1 %; Neutrophils # 2.74 10^3/uL (1.8-7.7); Neutrophils % 54.3 %; Nucleated Red Blood Cells % 0 %; Platelet Count 166 10^3/cmm (130-400); Red Blood Count 3.95 10^6/uL (4.1-5.3); Red Cell Distribution Width 17.3 % (12.1-15.1); White Blood Count 5.1 10^3/uL (4.0-10.0)
[2020-09-14 06:18] LABS: Alanine Aminotransferase 12 U/L (0-41); Albumin Level 3.6 g/dL (3.5-5.2); Alkaline Phosphatase 99 IU/L (40-130); Anion Gap 12.4 (5-19); Aspartate Amino Transferase 14 U/L (0-40); Blood Urea Nitrogen 27 mg/dL (8-23); Calcium 8.7 mg/dL (8.5-10.5); Carbon Dioxide 26 mmol/L (22-29); Chloride 106 mmol/L (98-107); Globulin 3.1 g/dL (1.3-4.6); Glucose 91 mg/dL (65-115); Osmolality Calculated 295 mOsm/kg (285-295); Potassium 4.4 mmol/L (3.5-5.1); Sodium 140 mmol/L (136-145); Total Bilirubin 0.8 mg/dL (0.15-1.2); Total Protein 6.7 g/dL (6.6-8.7)
[2020-09-14] MEDS: heparin 5,000 unit/mL INJ 1 mL 5000 UNIT SUBCUT (06:18)
[2020-09-14 06:27] LABS: Glucose Point of Care 100 mg/dL (70-110)
[2020-09-14 06:28] LABS: Glucose Point of Care 127 mg/dL (70-110)
[2020-09-14 07:35] VITALS: BP 141/83; PULSE 64; RESP 18; TEMP 36.7; O2SAT 98
[2020-09-14 08:25] LABS: Glucose Point of Care 154 mg/dL (70-110)
[2020-09-14] MEDS: clopidogrel 75 mg Tablet PO (09:20)
[2020-09-14] MEDS: carvedilol 25 mg Tablet PO (09:20)
[2020-09-14] MEDS: divalproex DR 250 mg Tablet PO (09:21)
[2020-09-14] MEDS: hyDRALAzine 25 mg Tablet PO (09:23)
[2020-09-14 09:24] VITALS: BP 141/83
[2020-09-14] MEDS: losartan 50 mg Tablet PO (09:24)
[2020-09-14] MEDS: memantine 5 mg tablet 10 MG PO (09:26)
[2020-09-14] MEDS: pantoprazole DR 40 mg Tablet PO (09:27)
[2020-09-14] MEDS: aspirin 325 mg Tablet PO (09:28)
[2020-09-14] MEDS: bumetanide 1 mg Tablet PO (09:28)
[2020-09-14] MEDS: potassium chloride ER 10 mEq Tablet PO (09:28)
[2020-09-14] MEDS: polyethylene glycol 3350 Pkt 17 gm PO (09:29)
[2020-09-14 09:44] LABS: Glucose Point of Care 232 mg/dL (70-110)
[2020-09-14 11:11] VITALS: BP 133/60; PULSE 78; RESP 18; TEMP 36.7; O2SAT 95
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
[2020-09-14 11:21] LABS: Glucose Point of Care 235 mg/dL (70-110)
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
[2020-09-14 13:09] VITALS: BP 133/60; PULSE 78; RESP 18; TEMP 36.7; O2SAT 95
== END 2020-09-14 13:11 | disposition skilled nursing facility (03) | DRG 291 ==
LOC: ER 21:03 → MEDSURG 21:59
PROVIDERS: Family Medicine; Admitting Provider Internal Medicine; Emergency Provider Emergency Medicine; PCP Family Medicine; Visit Provider Internal Medicine
DX: I13.0 Hypertensive heart and chronic kidney disease with heart failure and stage 1 through stage 4 chronic kidney disease, or unspecified chronic kidney disease (principal); J96.01 Acute respiratory failure with hypoxia; D66 Hereditary factor VIII deficiency; I50.23 Acute on chronic systolic (congestive) heart failure; J98.11 Atelectasis; N18.9 Chronic kidney disease, unspecified; E11.22 Type 2 diabetes mellitus with diabetic chronic kidney disease; E11.649 Type 2 diabetes mellitus with hypoglycemia without coma; E11.51 Type 2 diabetes mellitus with diabetic peripheral angiopathy without gangrene; Z95.820 Peripheral vascular angioplasty status with implants and grafts; F03.90 Unspecified dementia, unspecified severity, without behavioral disturbance, psychotic disturbance, mood disturbance, and anxiety; E78.5 Hyperlipidemia, unspecified; I25.10 Atherosclerotic heart disease of native coronary artery without angina pectoris; Z95.1 Presence of aortocoronary bypass graft; Z95.5 Presence of coronary angioplasty implant and graft; Z87.891 Personal history of nicotine dependence; I35.0 Nonrheumatic aortic (valve) stenosis; I48.91 Unspecified atrial fibrillation; Z79.02 Long term (current) use of antithrombotics/antiplatelets; Z79.4 Long term (current) use of insulin
CPT/HCPCS: 36415; 36416; 70450; 71045; 80048; 80053; 81003; 82962; 83036; 83735; 83880; 84145; 84484; 85025; 93005; 93306; 96365; 96367; 96372; 96375; 99285; G0378; J0456; J0696; J1644; J1940; J7050

== ENCOUNTER 2020-09-27 05:56 | Observation (INO) | payer MEDICARE, BC, SELFPAY ==
[2020-09-27] VITALS (12 sets, daily range): BP systolic 114–193; BP diastolic 58–127; PULSE 68–93; RESP 16–22; TEMP 36.6–37.3; O2SAT 92–100; BMI 33.1
--- NOTE | 2020-09-27 06:10 | XRR_ITS ---
PROCEDURE INFORMATION: Exam: XR Chest Exam date and time: 09/27/2020 6:15 AM Age: 85 years old Clinical indication: Other: No chest complaints; Prior surgery; Surgery date: 6+ months; Surgery type: Heart; Additional info: Dyspnea/cough TECHNIQUE: Imaging protocol: XR of the chest. Views: 1 view. COMPARISON: CR XR chest 1V portable [id number] 09/12/2020 6:23 PM FINDINGS: Lungs: Mild vascular congestion. Mild airspace consolidation left lung base. Small pleural effusions. Findings are improved. Pleural spaces: See Lungs finding. Heart/Mediastinum: cardiac silhouette is enlarged. Prior sternotomy. Bones/joints: See Heart/Mediastinum finding. XR/XR chest 1V portable [id number] IMPRESSION: Mild vascular congestion. Mild airspace consolidation left lung base. Small pleural effusions. Findings are improved.
--- NOTE | 2020-09-27 06:21 | ED_ITS ---
HPI - Nausea/Vomiting/Diarrhea General: Chief complaint: Nausea/Vomiting/Diarrhea Stated complaint: N/V Time Seen by Provider: 09/27/20 05:58 History of Present Illness: HPI Narrative: 85 yo male present form the [place] via EMS with complaints of coffee ground emesis. Patient is demented not able to contribute much to history. EMS reported that he had hematemesis this morning with vomiting of blood and clots that they noted during rounds. They report the patient has a history of episodes of this in the past. He is not currently on any anticoagulants but he is on Plavix. Patient is diabetic. He denies chest pain abdominal pain denies shortness of breath denies dysuria urgency frequency or diarrhea. Shortly after arriving here the patient vomited some dark material appears to be mostly food contents does not appear to be coffee-ground like emesis. No hematemesis. MD elicited complaint: nausea and vomiting Onset (ago): hour(s) Description of vomiting: food contents Associated nausea: Yes Associated abdominal pain: No Severity: moderate Quality: cramping Exacerbating factors: none Relieving factors: none Associated symtoms: Reports altered mental status, anorexia, malaise, nausea and weakness; Denies bloating, chest pain, cough, dysuria or short of breath Treatment prior to arrival: none Review of Systems Const: Reports: malaise ENMT: Denies: throat pain, ear or mastoid pain, nasal discharge or nasal congestion Card: Denies: chest pain Resp: Denies: dyspnea, productive cough or non-productive cough GI: Reports: nausea; Denies: bloating : Denies: dysuria Skin/Breast: Denies: rash or pruritus PFS ED PFSH: Medical History (Updated 09/29/20 @ 06:35 by Kendell Rivera DO) Cellulitis CHF (congestive heart failure) Dementia Diabetes Dyslipidemia Hypertension Hypoglycemia Surgical History Hx of CABG Family History Other Family history non-contributory Social History Smoking and tobacco status: former smoker Alcohol intake: never Housing: Group Home Physical Exam Const: COMMON NORMALS: no acute distress EXAM LIMITATIONS: altered mental status GENERAL APPEARANCE: cooperative HENMT: COMMON NORMALS: normocephalic, atraumatic and hearing grossly normal bilaterally HEAD & SCALP: normocephalic and atraumatic Resp: COMMON NORMALS: normal respiratory effort, No retractions, No use of accessory muscles and clear to auscultation bilaterally AUSCULTATION: clear to auscultation bilaterally Cardio: COMMON NORMALS: regular rate and regular rhythm RATE: regular rate RHYTHM: regular rhythm GI: COMMON NORMALS: Soft to palpation and No hepatosplenomegaly present AUSCULTATION: Yes normoactive bowel sounds PALPATION: Yes Soft to palpation, No Tenderness to palpation present (GI), No Guarding due to palpation present (GI) and Yes No hepatosplenomegaly present Skin: COMMON NORMALS: no rashes or lesions noted GENERAL SKIN EXAM: no rashes or lesions noted Course Vital Signs: Vital signs: Vital Signs Temperature 97.7 F 09/28/20 12:00 Pulse Rate 67 09/28/20 17:07 Respiratory Rate 20 H 09/28/20 12:00 Blood Pressure 151/78 09/28/20 12:00 Pulse Oximetry 98 09/28/20 12:00 MDM - Nausea/Vomiting/Diarrhea MDM Narrative: Medical decision making narrative: Patient episode of coffee- ground emesis on arrival here did test Gastroccult positive. He is got significant dementia as well. Discussed Dr. Mcgrath will put him on observation orders written. Lab Data: Labs: Lab Results 09/27/20 09/27/20 09/27/20 Range/Units 06:30 06:30 06:30 WBC 7.3 (4.0-10.0) 10^3/ uL RBC 4.01 L (4.1-5.3) 10^6/u L Hgb 10.0 L (11.7-16.6) g/dL Hct 32.2 L (42.0-52.0) % MCV 80.3 (80-94) fL MCH 24.9 L (28.0-34.0) pg MCHC 31.1 (30.0-36.0) g/dL RDW 16.9 H (12.1-15.1) % Plt Count 162 (130-400) 10^3/c mm MPV 11.3 H (7.4-10.4) fL Neut % (Auto) 82.3 % Lymph % (Auto) 9.5 % [place] % (Auto) 5.2 % Eos % (Auto) 1.9 % Baso % (Auto) 0.8 % Neut # (Auto) 5.96 (1.8-7.7) 10^3/u L Lymph # (Auto) 0.7 L (0.8-4.8) 10^3/u L [place] # (Auto) 0.4 (0.2-0.9) 10^3/u L Eos # (Auto) 0.1 (0.0-0.8) 10^3/u L Baso # (Auto) 0.1 (0.0-0.1) 10^3/u L Nucleated RBC % (a uto) 0 % Nucleated RBCs # 0.0 /100WBC PT 13.20 (12.1-14.9) SECO NDS INR 0.97 (0.8-1.2) APTT 33.7 (23.9-36.7) SECO NDS Sodium 136 (136-145) mmol/L Potassium 4.3 (3.5-5.1) mmol/L Chloride 98 (98-107) mmol/L Carbon Dioxide 27 (22-29) mmol/L Anion Gap 15.3 (5-19) BUN 32 H (8-23) mg/dL Creatinine 1.4 H (0.7-1.2) mg/dL GFR Calculation Not Reportable Glucose 281 H (65-115) mg/dL Calculated Osmolal ity 299 H (285-295) mOsm/k g Calcium 9.3 (8.5-10.5) mg/dL Total Bilirubin 1.1 (0.15-1.2) mg/dL AST 14 (0-40) U/L ALT 16 (0-41) U/L Alkaline Phosphata se 125 (40-130) IU/L Total Protein 7.1 (6.6-8.7) g/dL Albumin 3.7 (3.5-5.2) g/dL Globulin 3.4 (1.3-4.6) g/dL Lipase 36 (13-60) U/L Gastric Occult Blo od (Negative) Blood Type Rho(D) Type Antibody Screen 05/11/21 05/11/21 Range/Units 06:30 11:40 WBC (4.0-10.0) 10^3/ uL RBC (4.1-5.3) 10^6/u L Hgb (11.7-16.6) g/dL Hct (42.0-52.0) % MCV (80-94) fL MCH (28.0-34.0) pg MCHC (30.0-36.0) g/dL RDW (12.1-15.1) % Plt Count (130-400) 10^3/c mm MPV (7.4-10.4) fL Neut % (Auto) % Lymph % (Auto) % [place] % (Auto) % Eos % (Auto) % Baso % (Auto) % Neut # (Auto) (1.8-7.7) 10^3/u L Lymph # (Auto) (0.8-4.8) 10^3/u L Lanier # (Auto) (0.2-0.9) 10^3/u L Eos # (Auto) (0.0-0.8) 10^3/u L Baso # (Auto) (0.0-0.1) 10^3/u L Nucleated RBC % (a uto) % Nucleated RBCs # /100WBC PT (12.1-14.9) SECO NDS INR (0.8-1.2) APTT (23.9-36.7) SECO NDS Sodium (136-145) mmol/L Potassium (3.5-5.1) mmol/L Chloride (98-107) mmol/L Carbon Dioxide (22-29) mmol/L Anion Gap (5-19) BUN (8-23) mg/dL Creatinine (0.7-1.2) mg/dL GFR Calculation Glucose (65-115) mg/dL Calculated Osmolal ity (285-295) mOsm/k g Calcium (8.5-10.5) mg/dL Total Bilirubin (0.15-1.2) mg/dL AST (0-40) U/L ALT (0-41) U/L Alkaline Phosphata se (40-130) IU/L Total Protein (6.6-8.7) g/dL Albumin (3.5-5.2) g/dL Globulin (1.3-4.6) g/dL Lipase (13-60) U/L Gastric Occult Blo od Positive H (Negative) Blood Type O Positive Rho(D) Type Positive / 4+ Antibody Screen Negative Discharge Plan Discharge Patient Disposition: Placed in Observation Admit Provider: Craig Simmons Clinical Impression: Acute upper GI bleed, CHF (congestive heart failure), Dementia, Anemia, Diabetes Discharge Diet: Diabetic Discharge Activity: Increase activity as tolerated Coding Level of Care Code ED [employer] for [employer] Fwd Exam Detailed
[2020-09-27] MEDS: ondansetron 2 mg/ML SDV 2 mL 4 MG IVP (07:00)
[2020-09-27 07:02] LABS: Basophils # 0.1 10^3/uL (0.0-0.1); Basophils % 0.8 %; Eosinophils # 0.1 10^3/uL (0.0-0.8); Eosinophils % 1.9 %; Hematocrit 32.2 % (42.0-52.0); Lymphocytes # 0.7 10^3/uL (0.8-4.8); Lymphocytes % 9.5 %; Mean Corpuscular HGB Conc 31.1 g/dL (30.0-36.0); Mean Corpuscular Hemoglobin 24.9 pg (28.0-34.0); Mean Corpuscular Volume 80.3 fL (80-94); Mean Platelet Volume 11.3 fL (7.4-10.4); Monocytes # 0.4 10^3/uL (0.2-0.9); Monocytes % 5.2 %; Neutrophils # 5.96 10^3/uL (1.8-7.7); Neutrophils % 82.3 %; Nucleated Red Blood Cells % 0 %; Platelet Count 162 10^3/cmm (130-400); Red Blood Count 4.01 10^6/uL (4.1-5.3); Red Cell Distribution Width 16.9 % (12.1-15.1); White Blood Count 7.3 10^3/uL (4.0-10.0)
[2020-09-27] MEDS: sodium chloride 0.9% 500 ML 999 ML IV ×2 (07:03→09:42)
[2020-09-27 07:12] LABS: INR 0.97 (0.8-1.2); Partial Thromboplastin Time 33.7 SECONDS (23.9-36.7)
[2020-09-27 07:17] LABS: Alanine Aminotransferase 16 U/L (0-41); Albumin Level 3.7 g/dL (3.5-5.2); Alkaline Phosphatase 125 IU/L (40-130); Anion Gap 15.3 (5-19); Aspartate Amino Transferase 14 U/L (0-40); Blood Urea Nitrogen 32 mg/dL (8-23); Calcium 9.3 mg/dL (8.5-10.5); Carbon Dioxide 27 mmol/L (22-29); Chloride 98 mmol/L (98-107); Globulin 3.4 g/dL (1.3-4.6); Glucose 281 mg/dL (65-115); Lipase 36 U/L (13-60); Osmolality Calculated 299 mOsm/kg (285-295); Potassium 4.3 mmol/L (3.5-5.1); Sodium 136 mmol/L (136-145); Total Bilirubin 1.1 mg/dL (0.15-1.2); Total Protein 7.1 g/dL (6.6-8.7)
--- NOTE | 2020-09-27 07:18 | CT_ITS ---
WS: [id number] CT ABDOMEN AND PELVIS WITH CONTRAST HISTORY: abd pain/n/v TECHNIQUE: Imaging performed of the abdomen and pelvis with IV contrast. Single phase imaging of the abdomen. Coronal and sagittal reformats are submitted. All CT scans at [facility] use at least one of these dose optimization techniques: automated exposure control; mA and/or kV adjustment per patient size (includes targeted exams where dose is matched to clinical indication); or iterativ e reconstruction. IV CONTRAST: Visipaque 320; 95 mL IV. Oral contrast: No DLP: 1770.37 mGy.cm COMPARISON: None available. Lower thorax: Small bilateral pleural effusions, LEFT greater than RIGHT with compressive atelectasis . There is a small amount of interstitial edema at the lung bases. There is a possible filling defect in the RIGHT lower lobe pulmonary arterial system, segmental branch. There is an additional lymph no de posterior to the LEFT atrium measuring 12 mm. Marked enlargement of the heart. There is an area of marked increased density posterior to the heart of uncertain etiology. This curvilinear area was als o present on 03/24/2019 radiograph. Probably related to the prior cardiac surgery. Moderate circumfere ntial thickening of the distal esophagus. Liver/biliary system: Mild enlargement of the liver with hepatic congestion. Gallbladder: Contracted with stones. Pancreas: Atrophied pancreas. Spleen: Normal size spleen. No mass or infarct. Adrenal glands: Normal. Right kidney: Mild diffuse cortical thinning. There are multiple low-attenuation masses with the larg est from the lower pole measuring 3.2 cm. Ostiomeatal units are elevated. No obstruction. Left kidney: Significantly limited evaluation by motion. There are low-attenuation cortical lesions w hich may be cysts. There is an enhancing nodule measuring 16 mm extending laterally from the kidney w hich may be an artifact or neoplasm. Aorta: Moderate atherosclerosis with no aneurysm. Lymphadenopathy: Subcentimeter lymph nodes at the celiac axis and near the GE junction. Free fluid: None. GI tract: There is significant motion artifact limiting evaluation of the GI tract. Ischemic changes could not be excluded. There is fecal retention. Marked fluid and air distention of the stomach. Abdominal wall: Unremarkable abdominal wall. No hernia. Pelvis: Slightly enlarged prostate gland. Urinary bladder is normally distended. Bones: Marked osteopenia and degenerative changes in the spine. Remote healed rib fractures RIGHT john g base. CT/CT abdomen pelvis w con* [id number] IMPRESSION: 1. This examination is extremely limited due to significant breathing artifact and motion artifact. 2. Small bilateral pleural effusions with compressive atelectasis. 3. Possible RIGHT lower lobe pulmonary emboli. Consider further evaluation by CT angiogram. 4. Marked cardiomegaly. 5. Extensive atherosclerosis aorta. 6. Circumferential thickening of the distal esophagus. 7. Hepatic congestion. 8. Cholelithiasis and contracted gallbladder. 9. Bilateral renal lesions. One lesion is enhancing and could be an neoplasm i n the LEFT kidney versus artifact secondary to motion. 10. Bowel ischemia cannot be excluded. 11. No ascites. 12. Cannot exclude free air with this amount of motion.
--- NOTE | 2020-09-27 07:21 | PC.NURSE ---
0610: Pt arrives per EMS with staff reporting several episodes of bloody vomitus, overnight Upon arrival pt is alert to self only,unable to recall time/place/situation. Placed on continuous cardiac, pulse ox, and intermittent b/p monitoring. Pt is noted to have an adult incontinent brief on that is dry. Dressings to cy lower legs removed to reveal open wounds/skin tears that had non adherent pads with small amount of yellow exudate. Wounds to lower legs left CORN PICKER. 0630: Pt noted to have large amount of bloody emesis. Dr. Rivera at bedside. IV's x 2 started, labs drawn.
[2020-09-27] MEDS: iodixanol 320 mg/mL 100mL Btl IV (07:38)
--- NOTE | 2020-09-27 09:01 | CT_ITS ---
WS: [id number] CT CHEST ANGIOGRAPHY WITH REFORMATS HISTORY: dyspnea TECHNIQUE: Contiguous axial images are obtained through the chest during arterial injection of intrav enous contrast. Images are reconstructed to evaluate the pulmonary arteries. MIP imaging also reviewe d. All CT scans at [facility] use at least one of these dose optimization techniques: aut omated exposure control; mA and/or kV adjustment per patient size (includes targeted exams where dose is matched to clinical indication); or iterative reconstruction. CONTRAST: Visipaque 320; 95 mL IV. DLP: 620.33 mGy.cm COMPARISON: None available. Good injection of the pulmonary artery. Previously seen filling defects in the segmental branches of the RIGHT lower lobe are not appreciated on this examination. No pulmonary emboli. Mildly enlarged pu lmonary artery. Atherosclerosis of the aorta. Prior CABG. Moderately enlarged LEFT heart. No RIGHT he art strain. Small to moderate bilateral pleural effusions with atelectasis. There is mild pulmonary edema. Mildly enlarged lymph nodes. Lymph nodes measure up to 11 mm along the RIGHT trachea. Lymph nodes are diffi cult to visualize with this amount of edema. There is probably an additional lymph node inferior to t he pulmonary ligament. Bilateral thyroid nodules, RIGHT greater than LEFT with substernal extension of the thyroid. Marked air distention of the stomach. Again suspicious for solid renal neoplasm measuring 1.6 cm from the mid lateral LEFT kidney. Complex cyst from the RIGHT kidney. CT/CT angio chest PE protcl [id number] IMPRESSION: 1. No pulmonary embolism. 2. Small to moderate bilateral pleural effusions, LEFT greater than RIGHT. 3. Mild pulmonary edema. 4. LEFT heart enlargement. 5. Suspicious for solid renal neoplasm LEFT kidney measures 1.6 cm. 6. Indeterminate mediastinal and hilar adenopathy.
[2020-09-27 11:50] LABS: Gastricult Occult Blood Positive (Negative)
--- NOTE | 2020-09-27 11:50 | CT_ITS ---
WS: [id number] CT HEAD NONCONTRAST HISTORY: fall TECHNIQUE: Contiguous axial imaging performed through the brain in 2.5 mm imaging. Bone and soft tiss ue windows. Sagittal and coronal reformats reviewed. All CT scans at [facility] use at ast one of these dose optimization techniques: automated exposure control; mA and/or kV adjustment pe r patient size (includes targeted exams where dose is matched to clinical indication); or iterative r econstruction. DLP: 836.87 mGy.cm COMPARISON: 09/12/2020 This study is suboptimal to evaluate for small intracranial areas of hemorrhage. Patient received IV contrast earlier today. There is enhancement throughout the brain. No enhancing masses. Small areas o f hemorrhage would easily be obscured. Severe atrophy and chronic white matter ischemic disease. Bilateral infarcts in the francis. Moderate si ze LEFT occipital infarct. Additional infarcts in the posterior LEFT parietal and LEFT frontal lobes. There is extensive chronic white matter ischemic disease. Ventricles: Mildly dilated ventricles and extra-axial spaces. Paranasal sinuses: As visualized are clear. Mastoid air cells: Well pneumatized. Calvarium and scalp: Skull is intact with no soft tissue edema or swelling. Cerumen in the external auditory canals bilaterally. CT/CT head wo con* [id number] IMPRESSION: 1. Small areas of acute hemorrhage would be obscured by the IV contrast that w as given earlier the same day. No large hemorrhages are identified. 2. Severe atrophy and ischemia and multiple prior infarcts. No acute interval change.
--- NOTE | 2020-09-27 12:37 | PC.NURSE ---
pt to CT scan by stretcher with tech
--- NOTE | 2020-09-27 12:56 | PM.HP ---
Providers/Chief Complaint Primary Care Provider: Everton Alcocer Chief Complaint: N/V History of Present Illness Roge Hopkins is a 85 year old male nursing facility patient with severe dementia who presents to the emergency department with concern of GI bleed. This morning according to nursing staff at the nursing facility he had an episode of vomiting, of coffee-ground emesis. There were some clots of bright red blood. All vitals were okay but with this event occurring he was sent to the emergency department. He had been okay the day before. He had had no blood in his stools or black or tarry stools. He was recently discharged from the hospital, September 14. At that time he was treated for a CHF exacerbation. Patient himself cannot really give any type of history, secondary to dementia. It should be noted he did have aspirin added to his Plavix during his last hospital stay. Review of Systems General: Reports: ROS unobtainable due to mental status (Unable to give secondary to dementia) Medications/Allergies Home Medications Medication Instructions Recorded Confirmed Last Taken Type acetaminophen 650 mg PO Q6H PRN 09/07/20 09/27/20 Unknown History bisacodyl [Dulcolax (bisacodyl)] 10 mg [place] DAILY PRN 09/07/20 09/27/20 Unknown History carvedilol [Coreg] 25 mg PO BID@0800,199909/07/20 09/27/20 09/26/20 History clopidogrel [Plavix] 75 mg PO DAILY@0800 09/07/20 09/27/20 09/26/20 History divalproex 250 mg PO BID@0800,199909/07/20 09/27/20 09/26/20 History docusate sodium [Colace] 100 mg PO BID@0800,199909/07/20 09/27/20 09/26/20 History furosemide [Lasix] 40 mg PO BID@0800,1200 09/07/20 09/27/20 09/26/20 History hydralazine 25 mg PO TID@0800,1400,199909/07/20 09/27/20 09/26/20 History lorazepam [Ativan] 0.25 mg PO BID@0800,199909/07/20 09/27/20 09/26/20 History losartan [Cozaar] 50 mg PO DAILY@0800 09/07/20 09/27/20 09/26/20 History magnesium hydroxide [Milk of 30 ml PO Q24H PRN 09/07/20 09/27/20 09/26/20 History Magnesia] memantine 10 mg PO BID@0800,199909/07/20 09/27/20 09/26/20 History ondansetron 4 mg PO Q6H PRN #14 tab 09/07/20 09/27/20 09/08/20 Rx polyethylene glycol 3350 [Miralax] 17 g PO Q2D@79909/07/20 09/27/20 09/26/20 History potassium chloride 10 meq PO DAILY@79909/07/20 09/27/20 09/26/20 History trazodone 100 mg PO DAILY@199909/07/20 09/27/20 09/26/20 History omeprazole 20 mg PO DAILY@79909/12/20 09/27/20 09/26/20 History insulin aspart U-100 [Novolog See Rx Instructions .ROUTE 09/14/20 09/27/20 09/26/20 Rx U-100 Insulin aspart] .COMPLEX #10 ml aspirin 81 mg PO DAILY@79909/27/20 09/27/20 09/26/20 History atorvastatin 40 mg PO BEDTIME@199909/27/20 09/27/20 09/26/20 History insulin glargine [Lantus U-100 10 unit SUBCUT BEDTIME@199909/27/20 09/27/20 09/26/20 History Insulin] Allergies Allergy/AdvReac Type Severity Reaction Status Date / Time No Known Allergies Allergy Verified 09/27/20 06:03 PFSH Acute PFSH: Medical History (Updated 09/27/20 @ 13:26 by Craig Simmons MD) Cellulitis CHF (congestive heart failure) Dementia Diabetes Dyslipidemia Hypertension Hypoglycemia Surgical History Hx of CABG Family History Other Family history non-contributory Social History Smoking and tobacco status: former smoker Alcohol intake: never Housing: Care Home Vitals/I&O/Wt Last Vital Signs Temp 97.8 F 09/27/20 06:30 Pulse 81 09/27/20 11:44 Resp 19 H 09/27/20 11:44 BP 162/105 09/27/20 11:44 Pulse Ox 100 09/27/20 11:44 09/26/20 09/27/20 09/27/20 22:59 06:59 14:59 Intake Total 500 / 500 Balance 500 / 500 Weight last 48 hrs Weight 98.883 kg Physical Exam Narrative: EXAM NARRATIVE: General exam is a white male, who can converse and answer a few questions but is obviously confused. HEENT: Arcus senilis present. Pupils equally round. Oropharynx clear. Neck is supple no lymphadenopathy or thyromegaly Cardiovascular regular in rhythm with a 2/6 systolic murmur. Lungs are clear no wheezing or crackles Abdomen is soft with positive bowel sounds. No obvious organomegaly is deferred Extremities no cyanosis clubbing or edema, cap refill brisk Skin no rash with some bruising over his right forehead, preseptal area. Some abrasions noted on his wick. Neuro confused but no obvious focal deficits Data : 09/27/20 06:30 09/27/20 06:30 Other data: CTA chest, no pulmonary embolism. Small to moderate bilateral effusions, solid mass left kidney, indeterminate mediastinal and hilar adenopathy. CT abdomen pelvis demonstrated question of pulmonary emboli. This is why CTA was done. Circumferential thickening distal esophagus. Hepatic ischemia. LFTs are normal Urinalysis not checked Chest x-ray demonstrated mild vascular congestion, mild consolidation left base, findings improved A&P Assessment and plan (1) GI bleed: Had an episode of coffee-ground emesis at the nursing facility. No history of nosebleed. Recently started on aspirin in addition to Plavix he was already on. Hold antiplatelet agents Follow hemoglobin closely Protonix 40 mg IV every 12 hours Visit with family regarding aggressiveness of investigation of distal esophageal thickening, GI bleeding considering his underlying dementia Status: Acute (2) CHF (congestive heart failure): Currently appears compensated. Continue home medications Status: Acute (3) Dementia: Severe Status: Acute (4) Diabetes: Sliding scale insulin Status: Acute (5) Anemia: Serial hemoglobins Status: Acute Additional A&P Information Multiple other medical problems as outlined in his past medical history Allow natural per nursing facility records No anticoagulation secondary to GI bleeding. SCDs for DVT prophylaxis. Attestations Medical Necessity Statement*: Will need less than 2 midnight stay for evaluation and treatment of coffee-ground emesis. Time Spent in Patient Care: Greater than 35 minutes Coding Level of Care Code Acute Mobile Battery Technician for Gage Pulliamd Diagnoses GI bleed K92.2 CHF (congestive heart failure) I50.9 Dementia F03.90 Diabetes E11.9 Anemia D64.9
--- NOTE | 2020-09-27 14:06 | PC.NURSE ---
ADMIT NOTE ADMISSION IS DIFFICULT DUE TO PTS INABILITY TO ANSWER QUESTIONS - PT STATES HE IS IN THE ER AND THAT IS ALL HE VERBALIZES - NOTED RIGHT ABOVE EYE, ANTERIOR HEAD LAC WITH STERI STRIPS C/D/I - MARLENI EYES NOTED TO HAVE DARK PURPLE BRUISING - 02 2L NC - AP RRR - LUNGS COARSE THROUGHOUT - PIID NOTED TO RIGHT AND LEFT HAND - ABD SOFT WITH NO DISTENTION - SCATTERED BRUISES NOTED - BS HYPOACTIVE - POSTERIOR SCROTUM NOTED TO HAVE SHEARING - [place] APPLIED WELL DEPENDS - MARLENI LOWER EXTERMITIES, SHINS NOTED TO HAVE SCATTERED ABRASIONS - PPP - BED CHECK SET - WILL MONITOR
[2020-09-27 15:03] LABS: Hematocrit 29.9 % (42.0-52.0); Hemoglobin 9.2 g/dL (11.7-16.6)
[2020-09-27] MEDS: D5-NS 0.45% + KCL 20 mEq 20 MEQ/1,000 ML BAG 50 MEQ IV (16:55)
[2020-09-27 17:01] LABS: Glucose Point of Care 267 mg/dL (70-110)
[2020-09-27] MEDS: trazodone 100 mg Tablet PO (20:55)
[2020-09-27] MEDS: hyDRALAzine 25 mg Tablet PO (20:55)
[2020-09-27] MEDS: carvedilol 25 mg Tablet PO (20:56)
[2020-09-27] MEDS: atorvastatin 40 mg Tablet PO (20:56)
[2020-09-27] MEDS: memantine 5 mg tablet 10 MG PO (20:56)
[2020-09-27] MEDS: divalproex DR 250 mg Tablet PO (20:56)
[2020-09-27 21:10] LABS: Glucose Point of Care 226 mg/dL (70-110)
[2020-09-28] VITALS (7 sets, daily range): BP systolic 128–151; BP diastolic 72–78; PULSE 67–71; RESP 17–20; TEMP 36.5–36.8; O2SAT 96–100
[2020-09-28] MEDS: pantoprazole 40 mg SDV IVP ×2 (00:26→12:18)
[2020-09-28 06:31] LABS: Basophils # 0.1 10^3/uL (0.0-0.1); Basophils % 0.8 %; Eosinophils # 0.1 10^3/uL (0.0-0.8); Eosinophils % 2.3 %; Hematocrit 28.9 % (42.0-52.0); Hemoglobin 8.8 g/dL (11.7-16.6); Lymphocytes # 0.8 10^3/uL (0.8-4.8); Lymphocytes % 13.1 %; Mean Corpuscular HGB Conc 30.4 g/dL (30.0-36.0); Mean Corpuscular Hemoglobin 25.1 pg (28.0-34.0); Mean Corpuscular Volume 82.3 fL (80-94); Mean Platelet Volume 11.7 fL (7.4-10.4); Monocytes # 0.5 10^3/uL (0.2-0.9); Monocytes % 7.8 %; Neutrophils # 4.59 10^3/uL (1.8-7.7); Neutrophils % 75.8 %; Nucleated Red Blood Cells % 0 %; Platelet Count 156 10^3/cmm (130-400); Red Blood Count 3.51 10^6/uL (4.1-5.3); Red Cell Distribution Width 17.5 % (12.1-15.1); White Blood Count 6.1 10^3/uL (4.0-10.0)
[2020-09-28 06:39] LABS: Glucose Point of Care 258 mg/dL (70-110)
[2020-09-28 06:51] LABS: Alanine Aminotransferase 15 U/L (0-41); Albumin Level 3.3 g/dL (3.5-5.2); Alkaline Phosphatase 110 IU/L (40-130); Anion Gap 11.4 (5-19); Aspartate Amino Transferase 15 U/L (0-40); Blood Urea Nitrogen 33 mg/dL (8-23); Calcium 8.7 mg/dL (8.5-10.5); Carbon Dioxide 27 mmol/L (22-29); Chloride 104 mmol/L (98-107); Globulin 2.8 g/dL (1.3-4.6); Glucose 239 mg/dL (65-115); Osmolality Calculated 301 mOsm/kg (285-295); Potassium 4.4 mmol/L (3.5-5.1); Sodium 138 mmol/L (136-145); Total Bilirubin 1.1 mg/dL (0.15-1.2); Total Protein 6.1 g/dL (6.6-8.7)
--- NOTE | 2020-09-28 09:19 | PC.NURSE ---
Patient not fully waking up enough to swallow medications. Doctor notified of non-administration. Not given insulin due to patient not being able to wake up enough to eat.
[2020-09-28] MEDS: losartan 50 mg Tablet PO (11:12)
[2020-09-28] MEDS: carvedilol 25 mg Tablet PO (11:13)
[2020-09-28] MEDS: hyDRALAzine 25 mg Tablet PO ×2 (11:13→15:38)
[2020-09-28] MEDS: divalproex DR 250 mg Tablet PO (11:13)
[2020-09-28] MEDS: memantine 5 mg tablet 10 MG PO (11:13)
[2020-09-28] MEDS: potassium chloride ER 10 mEq Tablet PO (11:13)
--- NOTE | 2020-09-28 14:22 | P.DS_ITS ---
Discharge Providers Date of Admission: 09/27/20 11:55 Date of Discharge: September 28, 2020 Attending Provider at Admission: Craig Simmons MD Attending Provider at Discharge: Craig Simmons MD Primary Care Provider: Everton Alcocer Diagnoses at Discharge Discharge Diagnosis (1) GI bleed: Status: Acute (2) CHF (congestive heart failure): Status: Acute (3) Dementia: Status: Acute (4) Diabetes: Status: Acute (5) Anemia: Status: Acute Reason for Visit Reason for Visit: N/V Physical Exam Narrative: EXAM NARRATIVE: Roge is an 85-year-old white male who presents from a alf with history of vomiting some coffee-ground emesis, with s ome fresh clots of blood. After evaluation in the emergency department, initial hemoglobin was found to be 10.0. CTA of his chest and CT abdomen and pelvis were completed demonstrating no real acute findings. No pulmonary embolism was noted. No pneumonia was noted. No bowel obstruction, or significant evidence for ischemic bowel was present. He was placed on a proton pump inhibitor IV, and closely monitored on the floor. Serial hemoglobins were performed. By the following day on September 28 he had had no recurrence of his coffee-ground emesis. A diet was started and no recurrence of vomiting occurred. He did have a bowel movement while in the hospital that was heme-negative. Hemoglobin last day of hospitalization was 8.8. With no evidence of active bleeding, patient able to take p.o., it was determined that he could be discharged to the alf. Secondary to his significant dementia I visited with the daughter regarding her wishes about repeat hospitalization as I believe he is significantly debilitated with high aspiration risk. She reported she would like to pursue and no rehospitalization status, but may wish for continued cares to occur at the alf and not make him comfort cares only. I encouraged her to discuss this with the nursing facility. Aspirin and Plavix which patient was on prior to admission will be discontinued. He will continue Protonix twice daily. Physical exam on discharge. General exam no apparent distress Cardiovascular regular rate and rhythm without murmur Lungs relatively clear bilaterally, diminished breath sounds are noted bilaterally Abdomen is soft with positive bowel sounds Extremities no cyanosis clubbing or edema Discharge Data Data Completed and Pending: Completed Studies During Hospitalization Category Date Time Status CT abdomen pelvis w con* [id number] Stat Cat Scan 09/27/20 07:[address] angio chest PE protcl [id number] Stat Cat Scan 09/27/20 09:[address] head wo con* 7 [id number] Stat Cat Scan 09/27/20 11:50 Completed XR chest 1V ursula ble [id number] Stat Exams 09/27/20 06:10 Completed Pending at discharge Category Date Time Status Immunochemical Fe andrew OCB Stat Lab 09/27/20 11:44 Ordered Urinalysis Stat Lab 09/27/20 06:11 Uncollected Labs from last 24 hours 09/28/20 09/28/20 09/28/20 06:33 06:00 06:00 WBC 6.1 RBC 3.51 L Hgb 8.8 L Hct 28.9 L MCV 82.3 MCH 25.1 L MCHC 30.4 RDW 17.5 H Plt Count 156 MPV 11.7 H Neut % (Auto) 75.8 Lymph % (Auto) 13.1 [place] % (Auto) 7.8 Eos % (Auto) 2.3 Baso % (Auto) 0.8 Neut # (Auto) 4.59 Lymph # (Auto) 0.8 [place] # (Auto) 0.5 Eos # (Auto) 0.1 Baso # (Auto) 0.1 Nucleated RBC % (a uto) 0 Nucleated RBCs # 0.0 Sodium 138 Potassium 4.4 Chloride 104 Carbon Dioxide 27 Anion Gap 11.4 BUN 33 H Creatinine 1.7 H GFR Calculation Not Reportable Glucose 239 H POC Glucose 258 H Calculated Osmolal ity 301 H Calcium 8.7 Total Bilirubin 1.1 AST 15 ALT 15 Alkaline Phosphata se 110 Total Protein 6.1 L Albumin 3.3 L Globulin 2.8 09/27/20 09/27/20 09/27/20 20:25 16:40 14:54 WBC RBC Hgb 9.2 L Hct 29.9 L MCV MCH MCHC RDW Plt Count MPV Neut % (Auto) Lymph % (Auto) [place] % (Auto) Eos % (Auto) Baso % (Auto) Neut # (Auto) Lymph # (Auto) [place] # (Auto) Eos # (Auto) Baso # (Auto) Nucleated RBC % (a uto) Nucleated RBCs # Sodium Potassium Chloride Carbon Dioxide Anion Gap BUN Creatinine GFR Calculation Glucose POC Glucose 226 H 267 H Calculated Osmolal ity Calcium Total Bilirubin AST ALT Alkaline Phosphata se Total Protein Albumin Globulin Vitals: Last Vital Signs Temp 97.7 F 09/28/20 12:00 Pulse 71 09/28/20 12:00 Resp 20 H 09/28/20 12:00 BP 151/78 09/28/20 12:00 Pulse Ox 98 09/28/20 12:00 Discharge Plan Discharge Patient Disposition: Xfer SNF Condition: Stable Prescriptions: New pantoprazole [Protonix] 40 mg tablet,delayed release (DR/EC) 40 mg PO BID Qty: 60 RF: 0 Continued losartan [Cozaar] 50 mg Tablet 50 mg PO DAILY@0800 RF: 0 furosemide [Lasix] 40 mg Tablet 40 mg PO BID@0800,1199 RF: 0 carvedilol [Coreg] 25 mg Tablet 25 mg PO BID@799,1999 RF: 0 potassium chloride 10 mEq Capsule, Extended Release 10 meq PO DAILY@08 RF: 0 acetaminophen 325 mg Tablet 650 mg PO Q6H PRN (Reason: Pain) RF: 0 divalproex 250 mg Tablet,Delayed Release (Dr/Ec) 250 mg PO BID@799,1999 RF: 0 hydralazine 25 mg Tablet 25 mg PO TID@08,1399,1999 RF: 0 lorazepam [Ativan] 0.5 mg Tablet 0.25 mg PO BID@799,1999 RF: 0 magnesium hydroxide [Milk of Magnesia] 400 mg/5 mL Suspension 30 ml PO Q24H PRN (Reason: Constipation) RF: 0 trazodone 100 mg Tablet 100 mg PO DAILY@1999 RF: 0 bisacodyl [Dulcolax (bisacodyl)] 10 mg Suppository 10 mg [place] DAILY PRN (Reason: Constipation) RF: 0 docusate sodium [Colace] 100 mg Capsule 100 mg PO BID@799,1999 RF: 0 polyethylene glycol 3350 [Miralax] 17 gram/dose Powder 17 g PO Q2D@799 RF: 0 memantine 10 mg Tablet 10 mg PO BID@799,1999 RF: 0 ondansetron 4 mg tablet,disintegrating 4 mg PO Q6H PRN (Reason: nausea and vomiting) Qty: 14 RF: 0 insulin aspart U-100 [Novolog U-100 Insulin aspart] 100 unit/mL Solution See Rx Instructions .ROUTE .COMPLEX Qty: 10 RF: 0 Lantus U-100 Insulin 100 unit/mL Solution 10 unit SUBCUT BEDTIME@2000 RF: 0 atorvastatin 40 mg tablet 40 mg PO BEDTIME@1999 RF: 0 Discontinued clopidogrel [Plavix] 75 mg Tablet 75 mg PO DAILY@0800 RF: 0 omeprazole 20 mg Capsule,Delayed Release(Dr/Ec) 20 mg PO DAILY@0800 RF: 0 aspirin 81 mg tablet,chewable 81 mg PO DAILY@0800 RF: 0 Discharge Orders: Discharge Order (Routine); Ordered 09/28/20 Ordered By: Craig Simmons Referrals: Everton Alcocer [Primary Care Provider] - 4-7 days Discharge Diet: Diabetic Discharge Activity: Increase activity as tolerated Activity Restrictions/Additional Instructions: Pur?ed diet with thickened liquids, dysphagia 1 diet or its equivalent Oxygen 2 L per nasal cannula, titrate for sat greater than or equal to 92% Aspiration precautions Daughter indicates she would like to pursue no hospitalization, but may wish for care for conditions at the nursing facility and not be completely comfort care. Please discussed the status with family. Discharge Attestations Time Spent in Discharge Care*: greater than 30 min Quality Metrics Clinical Quality Measures During this hospital stay, did patient experience: None Coding Level of Care Code Acute g FW DC note Diagnoses GI bleed K92.2 CHF (congestive heart failure) I50.9 Dementia F03.90 Diabetes E11.9 Anemia D64.9
== END 2020-09-28 14:00 | disposition skilled nursing facility (03) ==
LOC: ER 11:53 → MEDSURG 13:01
PROVIDERS: Admitting Provider Internal Medicine; Emergency Provider Family Medicine; PCP Family Medicine; Visit Provider Internal Medicine
DX: K92.2 Gastrointestinal hemorrhage, unspecified (principal); I50.9 Heart failure, unspecified; F03.90 Unspecified dementia, unspecified severity, without behavioral disturbance, psychotic disturbance, mood disturbance, and anxiety; E11.9 Type 2 diabetes mellitus without complications; D64.9 Anemia, unspecified; Z79.4 Long term (current) use of insulin; Z87.891 Personal history of nicotine dependence
CPT/HCPCS: 36415; 36416; 70450; 71045; 71275; 74177; 80053; 82271; 82962; 83690; 85014; 85018; 85025; 85610; 85730; 86850; 86900; 96365; 96366; 96372; 96375; 99285; C9113; G0378; J1815; J2405; J7040; Q9967